=== PATIENT | female | born 1965 | race Caucasian/White ===

== ENCOUNTER 2019-02-14 14:16 | Emergency (ER) | payer BC ==
[2019-02-14 14:31] VITALS: BP 109/72
--- NOTE | 2019-02-14 15:20 | UC ---
Knee Pain HPI - HPI Summary HPI Summary: 53-year-old woman comes in with a chief complaint of left knee injury. Yesterday she tripped and fell and landed on her left knee. She had pain right away. 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 When she was able to rest her knee swelled up. Pain is worse with flexion. When she keeps her leg straight minimizes the pain walking. - History of Current Complaint Chief Complaint: UCLowerExtremity Stated Complaint: KNEE INJURY Time Seen by Provider: 02/14/19 14:25 Hx Last Menstrual Period: hysterectomy Pain Intensity: 5 - Allergies/Home Medications Allergies/Adverse Reactions: Allergies Allergy/AdvReac Type Severity Reaction Status Date / Time No Known Allergies Allergy Verified 02/14/19 14:28 Home Medications: Home Medications Biotin 500 mcg PO DAILY 02/14/19 [History Confirmed 02/14/19] Cholecalciferol (Vitamin D3) [Vitamin D3] 4,000 unit PO DAILY 02/14/19 [History Confirmed 02/14/19] Cyanocobalamin TAB* [Vitamin B12 TAB*] 500 mcg PO DAILY 02/14/19 [History Confirmed 02/14/19] Ped Multivit 43/Iron Fumarate [Flintstones Complete Chew Tab] 2 tab PO DAILY [History Confirmed 02/14/19] celeCOXIB CAP* [CeleBREX CAP*] 100 mg PO BID 02/14/19 [History Confirmed ] PMH/Surg Hx/FS Hx/Imm Hx Previously Healthy: Yes - Surgical History Surgical History: Yes Surgery Procedure, Year, and Place: GASTRIC BYPASS 09/2009. HYSTERECTOMY 2010. C SECTIONS . December 2018 - laminectomy, synovial nerve cyst - Family History Known Family History: Positive: Non-Contributory - Social History Alcohol Use: None Substance Use Type: None Smoking Status (MU): Never Smoked Tobacco Review of Systems All Other Systems Reviewed And Are Negative: Yes Constitutional: Positive: Negative Skin: Positive: Negative Eyes: Positive: Negative ENT: Positive: Negative Respiratory: Positive: Negative Cardiovascular: Positive: Negative Gastrointestinal: Positive: Negative Motor: Positive: Negative Neurovascular: Positive: Negative Musculoskeletal: Positive: Other: - see hpi Neurological: Positive: Negative Psychological: Positive: Negative Is Patient Immunocompromised?: No Physical Exam Triage Information Reviewed: Yes Appearance: Well-Appearing, No Pain Distress, Well-Nourished Vital Signs: Initial Vital Signs Temp 98 F 02/14/19 14:21 Pulse 75 02/14/19 14:21 Resp 16 02/14/19 14:21 BP 109/72 02/14/19 14:21 Pulse Ox 97 02/14/19 14:21 Vital Signs Reviewed: Yes Eye Exam: Normal Eyes: Positive: Conjunctiva Clear Neck: Positive: Supple Respiratory: Positive: No respiratory distress Musculoskeletal: Positive: Other: - The left knee has an effusion. Is diffusely tender circumferentially. Patient is point tender the distal patella. Knee is stable to exam. Pain with Ishmael's. Range of motion is slightly decreased in flexion. Neurological: Positive: Alert Psychological: Positive: Age Appropriate Behavior Skin Exam: Normal Knee Pain Course/Dx - Course Course Of Treatment: Patient Name: TURNER PERRY Medical Record#: [id number] Ordering Physician: King Rosenbaum MD Acct.#: [id number] : 1965 Age: 53 Sex: F Location: [facility] Exam Date: 02/14/19 143 ADM Status: REG ER Order Information: KNEE LEFT 4+ VWS Accession Number: [id number] CPT: 03144 HISTORY: PAIN S/P INJURY . COMPARISONS: None relevant available at the time of dictation. VIEWS: 4, Frontal, lateral, axial, and oblique views of the left knee FINDINGS: BONE DENSITY: Normal. BONES: There is lucency along the inferolateral medial patella. JOINTS: There is mild to moderate tract or mental osteoarthritis most pronounced in the patellofemoral compartment. There is a moderate suprapatellar joint effusion without appreciable lipohemarthrosis. ALIGNMENT: There is no dislocation. SOFT TISSUES: Unremarkable. OTHER FINDINGS: None. IMPRESSION: 1. LUCENCY ALONG THE INFERIOR MEDIAL PATELLA WHICH MAY REFLECT NONDISPLACED FRACTURE. RECOMMEND CORRELATION WITH SITE OF PAIN. 2. OSTEOARTHRITIS. 3. JOINT EFFUSION. <Electronically signed by Aba Sanders MD in OV> 02/14/19 1455 I discussed the x-rays with the patient. Patient was placed in an Charlie wrap and knee immobilizer by nursing patient neurovascular intact after placement. Patient declined crutches so she has a walking stick she continues. Patient's eyes it's elevated at rest it as much as possible and follow-up with sports medicine or orthopedics. - Differential Dx/Diagnosis Provider Diagnosis: Left patella fracture, Knee effusion, left Discharge - Sign-Out/Discharge Documenting (check all that apply): Patient Departure All imaging exams completed and their final reports reviewed: Yes - Discharge Plan Condition: Stable Disposition: HOME Patient Education Materials: Patellar Fracture (ED), Swollen Knee Joint (ED) Referrals: Jennifer Johnson MD [Primary Care Provider] - [facility] [Provider Group] Krzysztof Lopez MD [Medical Doctor] - Additional Instructions: FOLLOW UP WITH ORTHOPEDICS OR SPORTS MEDICINE. GET RECHECKED SOONER IF YOUR CONDITION WORSENS OR ANY QUESTIONS OR CONCERNS. - Billing Disposition and Condition Condition: STABLE Disposition: Home
== END 2019-02-14 15:30 | disposition home or self-care (01) ==
LOC: UCEAST 14:16
DX: S82.002A Unspecified fracture of left patella, initial encounter for closed fracture (principal); W01.0XXA Fall on same level from slipping, tripping and stumbling without subsequent striking against object, initial encounter; Y92.9 Unspecified place or not applicable; M25.462 Effusion, left knee; Z98.84 Bariatric surgery status
CPT/HCPCS: 99213; G0463

== ENCOUNTER 2019-08-04 16:45 | Emergency (ER) | payer BC ==
[2019-08-04 16:53] VITALS: BP 133/88
--- NOTE | 2019-08-04 17:08 | UC ---
Cardiac HPI - HPI Summary HPI Summary: 53 yo woman with episode of midsternal chest pain which began about half an hour ago while driving home from work. It has not completely resolved. Pain was sharp and severe, without shortness of breath, radiated to the back. She had no diaphoresis or nausea. Came for assessment because of her risk of heart disease risk. She has a strong FH of heart disease, with her father dying at age 55, first NE in his 40's and her MGF also having early disease. She has been on rosuvastatin for years due to cholesterol >400, but dose decreased some months ago due to elevated CPK, and she has not had a follow up since she began 20 mg dose. She has had a normal stress test several years ago. She is active with running a farm, but she does not exercise aerobically on a consistent basis. Hx of gastric bypass in the past. No hx of reflux and ate modestly today, so she is disinclined to consider gi origin. Feels under a lot of stress with home and work. - History of Current Complaint Chief Complaint: UCChestPain Stated Complaint: CHEST PAIN Time Seen by Provider: 08/04/19 16:46 Hx Obtained From: Patient Hx Last Menstrual Period: hysterectomy Onset/Duration: Sudden Onset Timing: Intermittent Episodes Lasting: - only episode lasted 30 minutes Initial Severity: Severe Current Severity: None Pain Intensity: 0 Chest Pain Location: Lower Sternal Character: Sharp/Stabbing Aggravating Factor(s): Nothing Alleviating Factor(s): Rest Associated Signs & Symptoms: Positive: Negative - Risk Factors Pulmonary Embolism Risk Factors: Negative Cardiac Risk Factors: Elevated Lipids, Family History Atrial Fibrillation: Negative TAD Risk Factors: Negative AMI/ACS Risk Factors: Family History, Dyslipidemia - Allergy/Home Medications Allergies/Adverse Reactions: Allergies Allergy/AdvReac Type Severity Reaction Status Date / Time No Known Allergies Allergy Verified 08/04/19 16:53 Home Medications: Home Medications Rosuvastatin Calcium [Crestor] 20 mg PO DAILY 08/04/19 [History Confirmed ] PMH/Surg Hx/FS Hx/Imm Hx Previously Healthy: Yes Endocrine History: Dyslipidemia - Surgical History Surgical History: Yes Surgery Procedure, Year, and Place: GASTRIC BYPASS 09/2009. HYSTERECTOMY 2010. C SECTIONS . December 2018 - laminectomy, synovial nerve cyst - Family History Known Family History: Positive: Cardiac Disease - father of heart disease, MGF of heart disease., Other - mother had medullary thyroid cancer but otherwise well. - Social History Occupation: Employed Full-time Lives: With Family Alcohol Use: None Substance Use Type: None Smoking Status (MU): Never Smoked Tobacco Review of Systems All Other Systems Reviewed And Are Negative: Yes Constitutional: Positive: Fatigue - chronically short on sleep; works as a teacher and runs a goat farm. Skin: Positive: Negative Eyes: Positive: Negative ENT: Positive: Negative Respiratory: Positive: Negative Cardiovascular: Positive: Chest Pain, Other - discussed efforts to control cholesterol Gastrointestinal: Positive: Negative Genitourinary: Positive: Negative Motor: Positive: Negative Neurovascular: Positive: Negative Musculoskeletal: Positive: Negative Neurological: Positive: Negative Psychological: Positive: Other - stressed by her work and by her 's dx of chronic leukemia. Is Patient Immunocompromised?: No Physical Exam Triage Information Reviewed: Yes Appearance: Well-Appearing, No Pain Distress Vital Signs: Initial Vital Signs Temp 97.8 F 08/04/19 16:46 Pulse 68 08/04/19 16:46 Resp 16 08/04/19 16:46 BP 133/88 08/04/19 16:46 Pulse Ox 98 08/04/19 16:46 ENT: Positive: Pharynx normal, TMs normal Neck: Positive: Supple, Nontender, No Lymphadenopathy Respiratory: Positive: Lungs clear, Normal breath sounds Cardiovascular: Positive: RRR, Murmur:Sys:Grade _?_/ - 1/6 systolic murmur at the left sternal border without radiation. Abdomen Description: Positive: Nontender, No Organomegaly, Soft Musculoskeletal Exam: Normal Neurological Exam: Normal Psychological Exam: Normal Skin Exam: Normal Diagnostics - EKG Cardiac Rate: NL Cardiac Rhythm: Sinus: Normal Ectopy: None ST Segment: Normal - Assessment/Plan Course Of Treatment: Discussed that pain has resolved and she has a normal EKG. We discussed her risk for cardiovascular disease and management of cholesterol. Advised that she call her product development assistant for follow up. - Differential Diagnoses - Chest Pain Differential Diagnosis/HQI/PQRI: ACS, Chest Wall - Clinical Impression Provider Diagnosis: Chest pain Discharge ED - Sign-Out/Discharge Documenting (check all that apply): Patient Departure All imaging exams completed and their final reports reviewed: No Studies - Discharge Plan Condition: Stable Disposition: HOME Patient Education Materials: Chest Pain (ED) Referrals: Jennifer Johnson MD [Primary Care Provider] - Additional Instructions: Your EKG was normal and your pain has resolved. Given your risk of heart disease, please call Dr. Lizarraga tomorrow to discuss evaluation, and ensure that you have your follow up evaluation of cholesterol this week and follow up with your primary doctor. I am hearing a very soft murmur along the left sternal border which sounds benign. Any further chest pain is best evaluated in the emergency room setting. - Billing Disposition and Condition Condition: STABLE Disposition: Home
== END 2019-08-04 17:33 | disposition home or self-care (01) ==
LOC: UCEAST 16:45
DX: R07.9 Chest pain, unspecified (principal); R53.83 Other fatigue; E78.5 Hyperlipidemia, unspecified; Z79.899 Other long term (current) drug therapy
CPT/HCPCS: 93005; 99211; G0463